=== PATIENT | male | born 1980 | race Caucasian/White ===

== ENCOUNTER 2019-03-28 09:27 | Emergency (ER) | payer OTHER, SELFPAY ==
[~2019-03-28] VITALS: Ht 175.3 cm; Wt 96.4 kg
[2019-03-28] MEDS ORDERED: ONDANSETRON 2MG/ML, 2ML ONE (09:52)
[2019-03-28] MEDS ORDERED: HYDROmorphone 1 MG/ML, 1ML INJ ONE ×2 (09:52→10:33)
[2019-03-28] MEDS ORDERED: ONDANSETRON 2MG/ML, 2ML IVPush ONE (10:00)
[2019-03-28] MEDS ORDERED: DIPH,PERTUSS(ACELL),TET VAC/PF 0.5 ML IM-VACC ONE ×2 (10:00→10:15)
[2019-03-28] MEDS ORDERED: PLEASE ENTER WEIGHT MC SCH (10:00)
[2019-03-28] MEDS ORDERED: SODIUM CHLORIDE FLUSH 10ML SYR IVF ONE (10:00)
[2019-03-28] MEDS: HYDROmorphone 2 MG/ML, 1ML IVPush PRN ×2 (10:00→10:16)
--- NOTE | 2019-03-28 10:01 | NUR ---
THIS IS A 38 YR OLD MALE WORKING ON HOUSE. PLUGGED NAIL GUN IN AND THE GUN WENT OFF FIRING A NAIL INTO THE PTS LOWER RIB CAGE. PT PRESENTS TO ER WITH PUNCTURE WOUND TO LOWER RIGHT RIB CAGE. NAIL HEAD IS VISIBLE UNDER THE SKIN. PT DENIES ANY SOB OR DIFFICULTY TAKING A DEEP BREATH AT THIS TIME. ABDOMEN IS NON TENDER WITH NO COMPLAINTS OF PAIN OTHER THAN THE PUNCTURE SITE.
[2019-03-28] MEDS ORDERED: PIPERACILLIN/TAZO/PMX 3.375GM 50 ML IV ONE (10:30)
[2019-03-28] MEDS ORDERED: CEFAZOLIN PMX 1GM/50ML 50 ML ONE (10:44)
--- NOTE | 2019-03-28 10:52 | NUR ---
nail pulled at this time. per md to monitor pt for 1 hour post removal. iv abx admin at this time.
[2019-03-28] MEDS ORDERED: CEFAZOLIN PMX 1GM/50ML 50 ML IV ONE (11:00)
[2019-03-28 11:10] VITALS: BP 127/74
== END 2019-03-28 11:53 | disposition home or self-care (01) ==
LOC: ED 11:35
DX: S31.140A Puncture wound of abdominal wall with foreign body, right upper quadrant without penetration into peritoneal cavity, initial encounter (principal); X58.XXXA Exposure to other specified factors, initial encounter; Y93.89 Activity, other specified; Y92.69 Other specified industrial and construction area as the place of occurrence of the external cause; Y99.0 Civilian activity done for income or pay
CPT/HCPCS: 74176; 90471; 90715; 96365; 96375; 96376; 99284; J0690; J1170; J2405